=== PATIENT | male | born 1995 | race Caucasian/White ===

== ENCOUNTER 2017-11-21 02:44 | Emergency (ER) | payer OTHER ==
[~2017-11-21] VITALS: Ht 175.3 cm; Wt 72.7 kg
[2017-11-21 02:51] VITALS: TEMP 97.6
[2017-11-21 05:17] VITALS: BP 99/66; PULSE 100
== END 2017-11-21 05:22 | disposition home or self-care (01) ==
LOC: COL.ER 02:44
DX: S01.112A Laceration without foreign body of left eyelid and periocular area, initial encounter (principal); Z23 Encounter for immunization; Y04.8XXA Assault by other bodily force, initial encounter; Y92.410 Unspecified street and highway as the place of occurrence of the external cause